=== PATIENT | male | born 1975 | race African-American/Black ===

== ENCOUNTER 2017-06-02 23:26 | Emergency (ER) | payer BC ==
--- NOTE | 2017-06-03 01:57 | ED ---
Throat Pain/Nasal Congestion - HPI Summary HPI Summary: 42-year-old male presents ED with complaint of right eye itchiness and discharge that began yesterday. Patient states about a week and a half ago he had same symptoms in the left eye machine with antibiotic drops. Does not wear contacts or glasses. Denies any changes to vision. No other complaints. No past medical history. Does not have any drops left over from previous infection. - History of Current Complaint Chief Complaint: EDEyeProblem Time Seen by Provider: 06/03/17 01:36 Hx Obtained From: Patient Onset/Duration: Sudden Onset, Lasting Days - 1, Still Present Severity: Mild Cough: None - Allergies/Home Medications Allergies/Adverse Reactions: Allergies Allergy/AdvReac Type Severity Reaction Status Date / Time No Known Allergies Allergy Verified 08/14/15 11:38 PMH/Surg Hx/FS Hx/Imm Hx Endocrine/Hematology History: Denies: Hx Diabetes, Hx Thyroid Disease Cardiovascular History: Denies: Hx Hypertension Respiratory History: Reports: Hx Asthma - no medications Denies: Hx Chronic Obstructive Pulmonary Disease (COPD) GI History: Denies: Hx Ulcer Musculoskeletal History: Reports: Hx Back Problems - Immunization History Immunizations Up to Date: Yes Infectious Disease History: No Infectious Disease History: Denies: Hx Clostridium Difficile, Hx Hepatitis, Hx Human Immunodeficiency Virus (HIV), Hx of Known/Suspected MRSA, Hx Shingles, Hx Tuberculosis, Hx Known/ Suspected VRE, Hx Known/Suspected VRSA, History Other Infectious Disease, Traveled Outside the [place] in Last 30 Days - Family History Known Family History: Positive: Cardiac Disease - [place], Hypertension, Other - Sickle cell - Social History Alcohol Use: Rare Substance Use Type: Reports: None Smoking Status (MU): Never Smoked Tobacco Have You Smoked in the Last Year: No Review of Systems Constitutional: Negative Positive: Drainage - right eye, Other - itchy Cardiovascular: Negative Respiratory: Negative All Other Systems Reviewed And Are Negative: Yes Physical Exam Triage Information Reviewed: Yes Vital Signs On Initial Exam: Initial Vitals Temp Pulse Resp BP Pulse Ox 97.9 F 82 20 149/76 96 06/02/17 23:28 06/02/17 23:28 06/02/17 23:28 06/02/17 23:28 06/02/17 23:28 Vital Signs Reviewed: Yes Appearance: Positive: Well-Appearing, No Pain Distress, Well-Nourished Skin: Positive: Warm, Skin Color Reflects Adequate Perfusion, Dry. Negative: Cold Head/Face: Positive: Normal Head/Face Inspection Eyes: Positive: Normal, EOMI, TRESA, Conjunctiva Inflammed, Other: - Normal visual acuity. Normal funduscopic exam. Discharge noted at right conjunctiva yellow in color purulent ENT: Positive: Normal ENT inspection, Hearing grossly normal, Pharynx normal, TMs normal, Uvula midline. Negative: Tonsillar swelling, Tonsillar exudate Neck: Positive: Supple, Nontender Respiratory/Lung Sounds: Positive: Clear to Auscultation, Breath Sounds Present. Negative: Rales, Rhonchi, Wheezes Cardiovascular: Positive: Normal, RRR, Pulses are Symmetrical in both Upper and Lower Extremities. Negative: Murmur, Rub Musculoskeletal: Positive: Normal, Strength/ROM Intact Neurological: Positive: Normal, Sensory/Motor Intact, Alert, Oriented to Person Place, Time Diagnostics - Vital Signs Vital Signs Temp Pulse Resp BP Pulse Ox 06/02/17 23:28 97.9 F 82 20 149/76 96 - Laboratory Lab Statement: Any lab studies that have been ordered have been reviewed, and results considered in the medical decision making process. EENT Course/Dx - Course Course Of Treatment: Appears to be suffering from conjunctivitis of right eye. Given Polytrim eyedrops in ED. Instructed how to use them. Instructed that it is very contagious and to wash blankets pillows towels with hot water and avoid touching eyes. Wash hands frequently. Aware worsening signs and symptoms watch out for. Follow-up with PCP - Differential Diagnoses Differential Diagnoses: Conjunctivitis - Diagnoses Provider Diagnoses: Conjunctivitis, right eye Discharge - Sign-Out/Discharge Documenting (check all that apply): Discharge - Discharge Plan Condition: Good Disposition: HOME Patient Education Materials: Conjunctivitis (ED) Referrals: Adrien Manzanares MD [Primary Care Provider] - Additional Instructions: Used eyedrops as directed. 1 drop every 3 hours into the right eye for 7-10 days. If the other eye becomes itchy or has discharge use drops in the other eye. Wash hands frequently. Do not touch eyes. Recommend washing all towels blankets pillowcases with hot water on day 2 and day 7. Applied warm compresses to eye multiple times daily. Any new or worsening symptoms please seek medical attention promptly. Follow-up with PCP to ensure improvement. - Billing Disposition and Condition Condition: GOOD Disposition: HOME
[2017-06-03] MEDS ORDERED: Polymyx/Trimethoprim OPTH* 10 ML BTL RIGHT EYE SCH (02:00)
[2017-06-03 02:08] VITALS: BP 154/72
== END 2017-06-03 02:07 | disposition home or self-care (01) ==
LOC: ED 23:26
DX: H10.9 Unspecified conjunctivitis (principal)
CPT/HCPCS: 99282

== ENCOUNTER 2018-08-18 08:56 | Inpatient (IN) | payer BC ==
[2018-08-18] MEDS ORDERED: NS 0.9% 1000 ML** 1,000 ML IV ONE (09:14)
[2018-08-18 09:35] LABS: Hematocrit 39 % (42-52); Hemoglobin 12.4 g/dL (14.0-18.0); Mean Corpuscular HGB Conc 32 g/dL (31-36); Mean Corpuscular Hemoglobin 25 pg (27-31); Mean Corpuscular Volume 79 fL (80-94); Mean Platelet Volume 8.6 fL (7.4-10.4); Platelet Count 218 10^3/uL (150-450); Red Cell Distribution Width 16 % (10.5-15); White Blood Count 15.1 10^3/uL (3.5-10.8)
--- NOTE | 2018-08-18 09:48 | ED ---
Shortness of Breath - HPI Summary HPI Summary: Patient is a 43-year-old male with history of morbid obesity and childhood asthma presenting to the ED with acute onset SOB and chest discomfort which started 2 days ago. He states he was recently in [place] on a cruise. He states he felt well and the cruise but arriving back into [place] immediately following the cruise he began to have a cough. The cough has been worsening over the past 2 days and he arrived home yesterday after he a long flight and drive. He is endorsing worsening shortness of breath accompanied by the cough. Cough is without production. He is having chest discomfort only with cough. His endorsing shortness of breath at rest. He takes no medications. Denies any cardiac history. He states he used to have an albuterol inhaler as well as nebulizer treatments at home, however currently does not have these at this time. Denies smoking history. Denies any history of PE or DVT. Currently has a left-sided leg swelling from an infection to which she has an appointment next week with his PCP. On arrival into the ED he was noted to be 82% on room air. He was increased to 96% on 4 L. - History of Current Complaint Chief Complaint: EDChestPainROMI Time Seen by Provider: 08/18/18 09:11 Hx Obtained From: Patient Onset/Duration: Sudden Onset Timing: Constant Current Severity: Severe Dyspnea At: Rest Associated Signs & Symptoms: Cough (Nonproductive), Wheezing, Chest Pain w/Cough Related History: Obesity - Risk Factors Pulmonary Embolism: Recent Travel, Bedrest Cardiac: Negative Pseudomonas: Negative Tuberculosis: Negative - Allergy/Home Medications Allergies/Adverse Reactions: Allergies Allergy/AdvReac Type Severity Reaction Status Date / Time No Known Allergies Allergy Verified 08/14/15 11:38 Home Medications: Home Medications NK [No Home Medications Reported] 08/18/18 [History Confirmed 08/18/18] PMH/Surg Hx/FS Hx/Imm Hx Previously Healthy: Yes Endocrine/Hematology History: Denies: Hx Diabetes, Hx Thyroid Disease Cardiovascular History: Denies: Hx Hypertension Respiratory History: Reports: Hx Asthma - no medications Denies: Hx Chronic Obstructive Pulmonary Disease (COPD) GI History: Denies: Hx Ulcer Musculoskeletal History: Reports: Hx Back Problems - Immunization History Hx Pertussis Vaccination: No Immunizations Up to Date: Yes Infectious Disease History: No Infectious Disease History: Reports: Traveled Outside the [place] in Last 30 Days Denies: Hx Clostridium Difficile, Hx Hepatitis, Hx Human Immunodeficiency Virus (HIV), Hx of Known/Suspected MRSA, Hx Shingles, Hx Tuberculosis, Hx Known/ Suspected VRE, Hx Known/Suspected VRSA, History Other Infectious Disease - Family History Known Family History: Positive: Cardiac Disease - [place], Hypertension, Other - Sickle cell - Social History Occupation: Unemployed Lives: With Family Alcohol Use: Rare Hx Substance Use: No Substance Use Type: Reports: None Smoking Status (MU): Never Smoked Tobacco Have You Smoked in the Last Year: No Review of Systems Constitutional: Negative Negative: Fever, Chills, Fatigue, Skin Diaphoresis Negative: Palpitations, Chest Pain Negative: Shortness Of Breath, Cough Genitourinary: Negative Positive: no symptoms reported, see HPI Negative: Arthralgia, Myalgia Positive: Other - left leg swelling Neurological: Negative All Other Systems Reviewed And Are Negative: Yes Physical Exam Triage Information Reviewed: Yes Vital Signs On Initial Exam: Initial Vitals Temp Pulse Resp BP Pulse Ox 97.8 F 94 18 164/107 82 08/18/18 09:07 08/18/18 09:07 08/18/18 09:07 08/18/18 09:07 08/18/18 09:07 Vital Signs Reviewed: Yes Appearance: Positive: Well-Nourished Skin: Positive: Warm, Skin Color Reflects Adequate Perfusion Head/Face: Positive: Normal Head/Face Inspection Eyes: Positive: EOMI, Conjunctiva Clear Neck: Positive: Nontender, No Lymphadenopathy Respiratory/Lung Sounds: Positive: Wheezes Cardiovascular: Positive: Pulses are Symmetrical in both Upper and Lower Extremities Musculoskeletal: Positive: Strength/ROM Intact Neurological: Positive: Speech Normal Psychiatric: Positive: Affect/Mood Appropriate AVPU Assessment: Alert Diagnostics - Vital Signs Vital Signs Temp Pulse Resp BP Pulse Ox 08/18/18 09:16 20 133/66 08/18/18 09:15 20 08/18/18 09:07 97.8 F 94 18 164/107 82 - Laboratory Lab Results: Lab Results 08/18/18 Range/Units 09:26 WBC 15.1 H (3.5-10.8) 10^3/uL RBC 4.90 (4.18-5.48) 10^6 /uL Hgb 12.4 L (14.0-18.0) g/dL Hct 39 L (42-52) % MCV 79 L (80-94) fL MCH 25 L (27-31) pg MCHC 32 (31-36) g/dL RDW 16 H (10.5-15) % Plt Count 218 (150-450) 10^3/uL MPV 8.6 (7.4-10.4) fL Neut % (Auto) Pending Lymph % (Auto) Pending Wagoner % (Auto) Pending Eos % (Auto) Pending Baso % (Auto) Pending Absolute Neuts (auto) Pending Absolute Lymphs (auto) Pending Absolute Monos (auto) Pending Absolute Eos (auto) Pending Absolute Basos (auto) Pending Absolute Nucleated RBC Pending Nucleated RBC % Pending Result Diagrams: 08/18/18 09:26 08/18/18 09:26 Lab Statement: Any lab studies that have been ordered have been reviewed, and results considered in the medical decision making process. Course/Dx - Course Course Of Treatment: On arrival into the ED, patient is noted to be 82% on room air. He is placed on 4 L and immediately increases to 96%. He is endorsing chest discomfort with cough and shortness of breath. He denies taking any medications. CTA read as negative/nondiagnostic for any PE. He states symptoms began prior to boarding a flight back to the [place], however worsened after he arrived. Labs obtained which show a 15,000 white count and an elevated CRP. Attempted to discontinue 2 L nasal cannula and patient dropped to 88%. This was at rest. BNP is WNL. Discussed case with Dr. Marquez, hospitalist who agrees to admit for further evaluation of his shortness of breath. Denies leg swelling or hx of DVT. On re-examination, discussed if patient had any recent illness. At this time, he mentions a left leg "infection " in which he has an appt to see his PCP this week. There is a left sided loewr leg infection which appears to be ulcerative. No swelling per patient. On re-examination, patient is noted to be 88% on 2L - he is increased to 3L and is satting at 91%. - Diagnoses Differential Diagnosis/HQI/PQRI: Positive: Bronchitis, CHF, Pneumonia, Pulmonary Embolism, Pulmonary Edema, Other - ashthma, COPD, viral illness Provider Diagnoses: Leg abrasion, Shortness of breath, Cough, Increased oxygen demand Discharge - Sign-Out/Discharge Documenting (check all that apply): Patient Departure Patient Received Moderate/Deep Sedation with Procedure: No - Discharge Plan Condition: Fair Disposition: ADMITTED TO [facility] Referrals: Adrien Manzanares MD [Primary Care Provider] - - Billing Disposition and Condition Condition: FAIR Disposition: Admitted to [facility] - Attestation Statements Provider Attestation: I was available for consult. This patient was seen by the [facility]. The patient was not presented to, seen by, or examined by me. -Tg
[2018-08-18 09:52] LABS: INR 1.17 (0.82-1.09)
[2018-08-18 09:53] LABS: Albumin 3.8 g/dL (3.2-5.2); Albumin/Globulin Ratio 0.8 (1-3); BUN/Creatinine Ratio 9.7 (8-20); C Reactive Protein 116.71 mg/L (<8.01); Calcium 9.2 mg/dL (8.6-10.3); EGFR African American 107.8 (>60); EGFR Non-African American 89.1 (>60); Globulin 4.6 g/dL (2-4); Potassium 4.4 mmol/L (3.5-5.0); Total Bilirubin 0.6 mg/dL (0.2-1.0); Total Protein 8.4 g/dL (6.4-8.9)
[2018-08-18 09:54] LABS: Troponin I 0.02 ng/mL (<0.04)
[2018-08-18 10:13] LABS: ABS Basophils 0.1 10^3/ul (0-0.2); ABS Eosinophils 0.2 10^3/ul (0-0.6); ABS Lymphocytes 2.8 10^3/ul (1.0-4.8); ABS Monocytes 1.7 10^3/ul (0-0.8); ABS Neutrophils 10.4 10^3/ul (1.5-7.7); Eosinophil % 1.4 %; Lymphocyte % 18.3 %; Nucleated Red Blood Cells % 0.1
[2018-08-18] MEDS ORDERED: Iohexol 350* (CONTRAST) 500 ML MDV IV ONE (11:13)
[2018-08-18] MEDS ORDERED: Albuterol/Ipratropium NEB.SOL* Albuterol 2.5 MG/Ipratropium 0.5 MG 3 ML INH PRN (15:13)
[2018-08-18] MEDS ORDERED: NS 0.9% 1000 ML** 1,000 ML IV SCH (15:15)
[2018-08-18] MEDS ORDERED: methylPREDNISolone 125 MG* 2 ML VIAL IV ONE ×2 (15:20→18:03)
[2018-08-18] MEDS ORDERED: Ketorolac INJ* 30 MG/ML 1 ML VIAL IV PUSH ONE (15:22)
--- NOTE | 2018-08-18 16:47 | HP ---
CC: Dr. Adrien Manzanares * [facility] MEDICINE HISTORY AND PHYSICAL: DATE OF ADMISSION: 08/18/18 PROVIDER: Elenita Perera NP PRIMARY CARE PROVIDER: Dr. Manzanares. ATTENDING PHYSICIAN WHILE IN THE HOSPITAL: Dr. Dustin Marquez * (dictated by Elenita Perera NP). CHIEF COMPLAINT: 1. Shortness of breath, cough x3 days. 2. Left lower leg wound x3 weeks. HISTORY OF PRESENT ILLNESS: Mr. Molina is a 43-year-old male with a past medical history significant for morbid obesity and asthma, who presents to the emergency room with complaints of progressively worsening shortness of breath and cough x3 days. The patient reports that he recently flew to [place] on and returned on 08/16/18. He reports that on 08/16/18, he developed shortness of breath and cough that has become progressively worse. He does note yellow productive cough. He reports that he also has upper chest pain. He reports it is worse with cough and deep breath. It is reproducible with palpation to the chest x2 days. He also complains of a sore throat x2 days. He reports that he has had an ulceration on the left lower leg lateral aspect for approximately 3 weeks. He denies any drainage. He does report some throbbing pain to the left lower leg. Due to his cough, congestion and chest pain, we were asked to see and evaluate him for admission. While in the emergency room, the patient had routine lab work drawn. He was found to have leukocytosis with a white count of 15,000. He was also found to be hypoxic on oxygen in the emergency room with desaturations to 88%. Due to the hypoxia, cough, congestion, chest pain, we were asked to evaluate him for admission. PAST MEDICAL HISTORY: Obesity, asthma. PAST SURGICAL HISTORY: No history of surgeries. HOME MEDICATIONS: None. ALLERGIES: No known drug allergies. FAMILY HISTORY: Mother and father both with hypertension. No reported history of diabetes. Mother with history of breast cancer. SOCIAL HISTORY: The patient denies any tobacco. Does report occasional alcohol use. Denies any illicit drug use. He is . He lives with his father. Surrogate decision maker in the event he is unable to make his own decisions is his mother. He is a full code. REVIEW OF SYSTEMS: He denies any fever or unintended weight loss. He does report chest pain, worse with cough and deep breath. He does report chronic lower extremity edema bilaterally, unchanged. He does report a productive cough with yellow sputum. Denies any hemoptysis. He does report shortness of breath, unable to take a deep breath due to pain. Shortness of breath worse with exertion and movement. No nausea, vomiting, diarrhea or abdominal pain, hematuria or dysuria. Denies any focal weakness or sensory loss. Denies any dysphagia, arthralgias, myalgias. He does have an ulceration noted to his left lower leg. There is no surrounding erythema or warmth. Denies any psychosis or anxiety. PHYSICAL EXAMINATION GENERAL: At this time, Mr. Molina is a 43-year-old male. He is morbidly obese , sitting in a chair in the emergency room. He is drowsy. He does not appear to be in any acute distress. VITAL SIGNS: Blood pressure 154/80, heart rate 86, respirations are 22, O2 saturation 90% to 96% on oxygen via nasal cannula. HEENT: Head is atraumatic, normocephalic. Eyes: EOMs are intact. Sclerae anicteric and not pale. Oral mucosa appeared to be moist. NECK: Supple. LUNGS: Diminished throughout with inspiratory and expiratory wheezing and a few scattered rhonchi. CARDIAC: S1, S2. Regular rate and rhythm. No murmurs, rubs, or gallops. The patient does have reproducible chest pain with palpation to midsternal and lateral chest. ABDOMEN: Obese, soft, nontender. Bowel sounds are present x4. MUSCULOSKELETAL: The patient is able to move all 4 extremities. There is no clubbing or cyanosis. He does have an open ulceration noted to the left lateral leg and darker discoloration to bilateral lower legs. NEUROLOGIC: He is awake, alert, oriented x3. Speech is clear. Thought process is intact. There are no gross focal deficits. SKIN: There is an ulceration noted to the lateral leg. Surrounding the ulceration, there is no erythema. DIAGNOSTIC STUDIES/LAB DATA: WBCs are 15.1, RBCs 4.90, hemoglobin 12.9, hematocrit 39, platelet count 218. INR is 1.17. Sodium 133, potassium 4.4, chloride 97, carbon dioxide is 33, anion gap is 3, BUN was 9, creatinine 0.93, lactic acid was 0.6, calcium 9.2. ASTs were 29, ALTs were 23, alkaline phosphatase was 46. Troponin was 0.02. C-reactive protein 116.71. BNP was 37. Urine is currently pending. He had a CTA of the chest: Limited study which does not meet the diagnostic criteria for detection of pulmonary embolism, hepatomegaly with fatty infiltration of the liver. He had an electrocardiogram, which showed sinus rhythm at a rate of 82. He does have T-wave inversion in V1. ASSESSMENT AND PLAN: Mr. Molina is a 43-year-old male with a past medical history significant for asthma and morbid obesity, who presented with complaints of shortness of breath and cough, recent travel. He will be admitted inpatient for: 1. Shortness of breath. I suspect this could be related to asthma exacerbation with acute bronchitis or underlying pneumonia. Within the differential is pulmonary embolism as the patient has had recent travel, swelling to his lower extremities, but denies any calf tenderness. CTA of the chest was nondiagnostic. I believe that more likely this is related to asthma exacerbation complicated by bronchitis or underlying pneumonia. The patient does have a 15,000 white count and a yellow productive cough with a history of asthma. I will place him on azithromycin and ceftriaxone. I will give him Solu -Medrol 125 mg IV. I will continue him on prednisone 40 mg p.o. daily starting tomorrow. He does meet sepsis criteria with elevated respirations, leukocytosis , and suspected source bronchitis versus pneumonia. I will send a urine for Legionella and Strep pneumoniae and a sputum culture. We will also continue with nebulizers. I will also order an ABG. 2. Left lower leg ulcer. The patient does have an ulceration noted to his left lower leg. Wound culture is currently pending. I will treat him with ceftriaxone at this time and adjust the antibiotics as needed per wound culture. 3. FEN: He can have a regular diet. 4. Code status: He is a full code. 5. DVT prophylaxis: I will place him on Lovenox subcu. 6. Disposition: The patient will be placed inpatient on medical. Condition at admission is guarded. TIME SPENT: Time spent on this admission was approximately 60 minutes, greater than half that time was spent at the bedside reviewing events leading thus far to his hospitalization, performing physical exam, and reviewing my plan of care. I have discussed this with my attending, Dr. Dustin Marquez; he is in agreement with my plan. ELENITA PERERA, LIFE CLAIMS EXAMINER [id number]/[facility] #: [id number] MAIMONIDES MEDICAL CENTERKiran
[2018-08-18] MEDS: cefTRIAXone(*) 1 GM in NS 0.9% 50 ML* 50 ML IVPB SCH ×5 (17:51→18:14)
[2018-08-18] MEDS: Enoxaparin(*) 40 MG/0.4 ML SYR SUBCUT SCH (17:51)
[2018-08-18] MEDS: Azithromycin 500 mg/250 ml NS 500 MG/250 ML BAG IVPB SCH (17:53)
[2018-08-18] MEDS ORDERED: Ketorolac INJ* 30 MG/ML 1 ML VIAL IV PUSH PRN ×2 (18:03→23:00)
[2018-08-18] MEDS ORDERED: cefTRIAXone(*) 1 GM in NS 0.9% 50 ML* 50 ML IVPB SCH (18:30)
[2018-08-18 19:30] LABS: Urine Appearance Clear; Urine Bacteria Absent (Absent); Urine Bilirubin Negative (Negative); Urine Blood Negative (Negative); Urine Color Yellow; Urine Glucose Negative (Negative); Urine Ketones Negative (Negative); Urine Nitrite Negative (Negative); Urine Protein 1+(30 mg/dL) (Negative); Urine Red Blood Cell Trace(0-2/hpf) (Absent); Urine Specific Gravity 1.045 (1.010-1.030); Urine Squamous Epithelial Cell Present (Absent); Urine Urobilinogen Negative (Negative); Urine White Blood Cell Absent (Absent)
--- NOTE | 2018-08-18 21:01 | PN ---
Progress Note - Progress Note Date of Service: 08/18/18 Note: ABG resulted - respiratory acidosis. Patient not in respiratory distress but appears to have shallow respirations and likely obesity hypoventilation syndrome exacerbated by his asthma exacerbation. States he was intolerant of nasal and face mask CPAP at home. Discussed they he needs it tonight. Transfer to ICU for BiPAP Will repeat ABG Concern for PE still on differential, will check ddimer - if elevated will start him on heparin drip and order V/Q scan for AM CTA nondiagnostic M
[2018-08-19] MEDS: Albuterol/Ipratropium NEB.SOL* Albuterol 2.5 MG/Ipratropium 0.5 MG 3 ML INH SCH ×7 (01:14→23:04)
[2018-08-19] MEDS ORDERED: Succinylcholine* 20 MG/ML 10 ML VIAL ONE (03:26)
[2018-08-19] MEDS ORDERED: Propofol* 0 ML ONE (03:26)
[2018-08-19] MEDS ORDERED: Albuterol 2.5 MG/3 ML NEB.SOL* (0.083%) INH ONE (03:34)
[2018-08-19] MEDS ORDERED: Magnesium Sulfate 2 GM IV* 2 GM/50 ML BAG IVPB ONE (03:35)
[2018-08-19] MEDS ORDERED: Furosemide IV* 10 MG/ML 2 ML VIAL (20 MG) IV ONE ×2 (03:52→03:56)
[2018-08-19] MEDS ORDERED: Nitro 2% OINT* (Nitroglycerin) 1 INCH/PAK PAK TOPICAL ONE (03:56)
[2018-08-19] MEDS ORDERED: Lactated Ringers 1000 ML Bag* 1,000 ML IV SCH (04:00)
[2018-08-19] MEDS: Albuterol 2.5 MG/3 ML NEB.SOL* (0.083%) INH PRN ×3 (04:10→04:26)
[2018-08-19 05:37] LABS: ABS Lymphocytes 0.9 10^3/ul (1.0-4.8); ABS Monocytes 0.6 10^3/ul (0-0.8); ABS Neutrophils 12.1 10^3/ul (1.5-7.7); Hematocrit 40 % (42-52); Hemoglobin 12.6 g/dL (14.0-18.0); Lymphocyte % 6.5 %; Mean Corpuscular HGB Conc 32 g/dL (31-36); Mean Corpuscular Hemoglobin 25 pg (27-31); Mean Corpuscular Volume 80 fL (80-94); Mean Platelet Volume 8.7 fL (7.4-10.4); Platelet Count 235 10^3/uL (150-450); Red Blood Count 4.96 10^6 /uL (4.18-5.48); Red Cell Distribution Width 16 % (10.5-15); White Blood Count 13.6 10^3/uL (3.5-10.8)
[2018-08-19 05:39] LABS: Urine Appearance Clear; Urine Bilirubin Negative (Negative); Urine Blood Negative (Negative); Urine Color Straw; Urine Glucose Negative (Negative); Urine Ketones Negative (Negative); Urine Nitrite Negative (Negative); Urine Protein Negative (Negative); Urine Specific Gravity 1.006 (1.010-1.030); Urine Urobilinogen Negative (Negative)
[2018-08-19 05:55] LABS: BUN/Creatinine Ratio 13.2 (8-20); Calcium 9.4 mg/dL (8.6-10.3); EGFR African American 110.6 (>60); EGFR Non-African American 91.4 (>60); HDL Cholesterol 69.1 mg/dL
[2018-08-19 05:57] LABS: Potassium 5.2 mmol/L (3.5-5.0)
[2018-08-19 06:29] LABS: TSH (Thyroid Stimulating Horm) 0.4 mcIU/mL (0.34-5.60)
[2018-08-19] MEDS ORDERED: predniSONE TAB* 20 MG PO SCH (09:00)
[2018-08-19] MEDS ORDERED: Perflutren Lipid Microsphere* 3 ML VIAL ONE (09:58)
[2018-08-19] MEDS ORDERED: Nitro Patch/OINT Remove TOPICAL ONE (10:00)
[2018-08-19] MEDS ORDERED: Vancomycin per Pharmacy* NOTE FOLLOW UP PRN (10:29)
[2018-08-19] MEDS ORDERED: Vancomycin(*) 2,000 MG in NS 0.9% 500 ML* 500 ML IVPB ONE (11:00)
--- NOTE | 2018-08-19 11:59 | PN ---
Date of Service: 08/19/18 Critical Care Services: patient seen and evaluated at the bedside. Girlfriend listening over the phone patient in NAD. AO times 3. Comfortable. Conversational MRSA growing from left LE wound diuresed 3 plus liters with lasix CRP elevated, WBC elevated with left shift d-dimer negative. Negative LE US for DVT Vital Signs: Temp Pulse Resp BP SpO2 FiO2 97.3 F 91 18 123/60 95 50 08/19/18 11:01 08/19/18 11:15 08/19/18 11:15 08/19/18 11:01 08/19/18 11:15 08/19 07:52 Physical Exam: Gen: Obese. NAD. HEENT: EOMI Lungs: Decreased BS's Cardiac: RRR Abdomen: Obese, Soft, NTP, no rebound or guarding Extremities: No CONOR Neuro: moving all extremities Fluid Balance (Past 24 Hours): I= O= Net Intake & Output 08/17/18 08/18/18 08/19/18 08/20/18 06:59 06:59 06:59 06:59 Intake Total 1290 60 Output Total 3550 575 Balance -2260 -515 Weight 525 lb 9.312 oz Intake: IV Fluids 1000 Medicated IV 50 mag 50 Oral 240 60 Output: Urine 1300 Damon 2250 575 A Labs: Laboratory Results - last 24 hr 08/18/18 08/18/18 08/18/18 17:38 18:55 19:45 WBC RBC Hgb Hct MCV MCH MCHC RDW Plt Count MPV Neut % (Auto) Lymph % (Auto) [place] % (Auto) Eos % (Auto) Baso % (Auto) Absolute Neuts (auto) Absolute Lymphs (auto) Absolute Monos (auto) Absolute Eos (auto) Absolute Basos (auto) Absolute Nucleated RBC Nucleated RBC % D-Dimer, Quantitative Patient Temperature ABG pH 7.30 L ABG pH (Temp Correct) ABG pCO2 77 H* ABG pCO2 (Temp Corrct ABG pO2 85 ABG pO2 (Temp Correct ABG HCO3 31.4 H ABG O2 Saturation 97.9 ABG Base Excess 8.4 H Respiration Rate Ventilator Type Vent Mode FiO2 Inspiratory Time PEEP Pressure Support Pressure Control EPAP IPAP BiPAP Sodium Potassium Chloride Carbon Dioxide Anion Gap BUN Creatinine Est GFR ( Amer) Est GFR (Non-Af Amer) BUN/Creatinine Ratio Glucose Hemoglobin A1c Calcium Troponin I 0.03 Triglycerides Cholesterol LDL Cholesterol HDL Cholesterol TSH Urine Color Yellow Urine Appearance Clear Urine pH 6.0 Ur Specific [place] 1.045 H Urine Protein 1+(30 mg/dl) A Urine Ketones Negative Urine Blood Negative Urine Nitrate Negative Urine Bilirubin Negative Urine Urobilinogen Negative Ur Leukocyte Esterase Negative Urine WBC (Auto) Absent Urine RBC (Auto) Trace(0-2/hpf) Ur Squamous Epith Cells Present A Urine Bacteria Absent Urine Glucose Negative Urine Ascorbic Acid * A 08/18/18 08/18/18 08/19/18 20:30 21:50 00:00 WBC RBC Hgb Hct MCV MCH MCHC RDW Plt Count MPV Neut % (Auto) Lymph % (Auto) [place] % (Auto) Eos % (Auto) Baso % (Auto) Absolute Neuts (auto) Absolute Lymphs (auto) Absolute Monos (auto) Absolute Eos (auto) Absolute Basos (auto) Absolute Nucleated RBC Nucleated RBC % D-Dimer, Quantitative < 200 Patient Temperature ABG pH 7.27 L ABG pH (Temp Correct) ABG pCO2 87 H* ABG pCO2 (Temp Corrct ABG pO2 52 L* ABG pO2 (Temp Correct ABG HCO3 31.8 H ABG O2 Saturation 82.0 L ABG Base Excess 9.4 H Respiration Rate Ventilator Type Vent Mode FiO2 Inspiratory Time PEEP Pressure Support Pressure Control EPAP IPAP BiPAP Sodium Potassium Chloride Carbon Dioxide Anion Gap BUN Creatinine Est GFR ( Amer) Est GFR (Non-Af Amer) BUN/Creatinine Ratio Glucose Hemoglobin A1c Calcium Troponin I 0.01 Triglycerides Cholesterol LDL Cholesterol HDL Cholesterol TSH Urine Color Urine Appearance Urine pH Ur Specific [place] Urine Protein Urine Ketones Urine Blood Urine Nitrate Urine Bilirubin Urine Urobilinogen Ur Leukocyte Esterase Urine WBC (Auto) Urine RBC (Auto) Ur Squamous Epith Cells Urine Bacteria Urine Glucose Urine Ascorbic Acid 08/19/18 08/19/18 08/19/18 01:20 03:00 04:50 WBC RBC Hgb Hct MCV MCH MCHC RDW Plt Count MPV Neut % (Auto) Lymph % (Auto) [place] % (Auto) Eos % (Auto) Baso % (Auto) Absolute Neuts (auto) Absolute Lymphs (auto) Absolute Monos (auto) Absolute Eos (auto) Absolute Basos (auto) Absolute Nucleated RBC Nucleated RBC % D-Dimer, Quantitative Patient Temperature Not Reportable ABG pH 7.26 L 7.26 L ABG pH (Temp Correct) Not Reportable ABG pCO2 88 H* 90 H* ABG pCO2 (Temp Corrct Not Reportable ABG pO2 85 69 L ABG pO2 (Temp Correct Not Reportable ABG HCO3 31.7 H 32.3 H ABG O2 Saturation 98.1 H 94.8 ABG Base Excess 8.8 H 9.6 H Respiration Rate Not Reportable Ventilator Type Not Reportable Vent Mode Not Reportable FiO2 50 Inspiratory Time Not Reportable PEEP Not Reportable Pressure Support Not Reportable Pressure Control Not Reportable EPAP Not Reportable IPAP 10 BiPAP 20 Sodium Potassium Chloride Carbon Dioxide Anion Gap BUN Creatinine Est GFR ( Amer) Est GFR (Non-Af Amer) BUN/Creatinine Ratio Glucose Hemoglobin A1c Calcium Troponin I Triglycerides Cholesterol LDL Cholesterol HDL Cholesterol TSH Urine Color Straw Urine Appearance Clear Urine pH 5.0 Ur Specific [place] 1.006 L Urine Protein Negative Urine Ketones Negative Urine Blood Negative Urine Nitrate Negative Urine Bilirubin Negative Urine Urobilinogen Negative Ur Leukocyte Esterase Negative Urine WBC (Auto) Urine RBC (Auto) Ur Squamous Epith Cells Urine Bacteria Urine Glucose Negative Urine Ascorbic Acid 08/19/18 08/19/18 08/19/18 05:30 05:30 05:30 WBC 13.6 H RBC 4.96 Hgb 12.6 L Hct 40 L MCV 80 MCH 25 L MCHC 32 RDW 16 H Plt Count 235 MPV 8.7 Neut % (Auto) 89.1 Lymph % (Auto) 6.5 [place] % (Auto) 4.1 Eos % (Auto) 0.0 Baso % (Auto) 0.3 Absolute Neuts (auto) 12.1 H Absolute Lymphs (auto) 0.9 L Absolute Monos (auto) 0.6 Absolute Eos (auto) 0.0 Absolute Basos (auto) 0.0 Absolute Nucleated RBC 0.0 Nucleated RBC % 0.0 D-Dimer, Quantitative Patient Temperature ABG pH ABG pH (Temp Correct) ABG pCO2 ABG pCO2 (Temp Corrct ABG pO2 ABG pO2 (Temp Correct ABG HCO3 ABG O2 Saturation ABG Base Excess Respiration Rate Ventilator Type Vent Mode FiO2 Inspiratory Time PEEP Pressure Support Pressure Control EPAP IPAP BiPAP Sodium 135 Potassium 5.2 H Chloride 96 L Carbon Dioxide 37 H Anion Gap 2 BUN 12 Creatinine 0.91 Est GFR ( Amer) 110.6 Est GFR (Non-Af Amer) 91.4 BUN/Creatinine Ratio 13.2 Glucose 172 H Hemoglobin A1c 5.9 H Calcium 9.4 Troponin I Triglycerides 98 Cholesterol 173 LDL Cholesterol 84 HDL Cholesterol 69.1 TSH 0.40 Urine Color Urine Appearance Urine pH Ur Specific [place] Urine Protein Urine Ketones Urine Blood Urine Nitrate Urine Bilirubin Urine Urobilinogen Ur Leukocyte Esterase Urine WBC (Auto) Urine RBC (Auto) Ur Squamous Epith Cells Urine Bacteria Urine Glucose Urine Ascorbic Acid Impression: #PNA #Volume overload #Pickwickian syndrome #MRSA LLE #chronic hypercapnea Plan: Continue empiric ABX CPAP/BiPap overnight. note, based on labs patient with chronic hypercapnea needs new cpap machine or his own machine adjusted as he finds it uncomfortable to use continue to diurese transfer to floor tomorrow if continues to improve monitor blood cx's as wound + for MRSA f/u TTE Critical Care Time: 45
[2018-08-19] MEDS: Furosemide IV* 10 MG/ML 2 ML VIAL (20 MG) IV SLOW PU SCH (13:04)
--- NOTE | 2018-08-19 14:33 | ECHO ---
*[facility]* [place] [address] Fax #: [phone] Transthoracic Echocardiogram Patient: Jesse, Height: 75 in / Cecilio 190.5 cm : 1975 Weight: 523.9 lb / Study Date: 08/19/2018 238.1 kg Age: 43 BP: 126 / 67 Gender: M BMI/BSA: 65.6 kg/m^2 HR: 81 bpm / 3.31 m^2 *Semiconductor Wafer Inspector: * Lili Faria [facility] *Referring Physician: * Elenita Perera *Reading Physician: * Jacinto Chavez MD Indications: SOB. History: Asthma. Risk factors: Morbidly obese. Conclusions Summary: 1. Left ventricle: The cavity size is at the upper limits of normal. Wall thickness is moderately increased. Systolic function is normal. The estimated ejection fraction is 55-60%. Wall motion is normal; there are no regional wall motion abnormalities. 2. Right ventricle: Not well visualized. The cavity size is normal. Systolic function is mildly reduced. 3. Left atrium: The atrium is normal in size. 4. No significant valvular abnormalities. Unable to estimate PASP. Recommendations: No prior studies available for comparison at time of interpretation Study data: Transthoracic echocardiogram. Procedure: Transthoracic echocardiography was performed. Image quality was adequate. Intravenous Definity , 2 mlswas administered. Image enhancement administered by JAYASHREE Walsh. Complete 2D, spectral Doppler, and color flow Doppler. Location: ICU Patient status: Inpatient. Patient room number: 3. Rhythm: Normal sinus rhythm. Findings Left ventricle: The cavity size is at the upper limits of normal. Wall thickness is moderately increased. Systolic function is normal. The estimated ejection fraction is 55-60%. Wall motion is normal; there are no regional wall motion abnormalities. Discrepant data regarding diastolic filling. Right ventricle: Not well visualized. The cavity size is normal. Systolic function is mildly reduced. Left atrium: The atrium is normal in size. Right atrium: Not well visualized. Mitral valve: The leaflets are normal thickness. There is no evidence of stenosis. There is no significant regurgitation. Aortic valve: The valve is trileaflet. The leaflets are normal thickness. There is no evidence of stenosis. There is no significant regurgitation. Tricuspid valve: The leaflets are normal thickness. There is no evidence of stenosis. There is trivial regurgitation. Pulmonic valve: Not well visualized. There is no significant regurgitation. Aorta: Aortic arch: The aortic arch is appears normal. The aortic root is not dilated. Pericardium: There is no significant pericardial effusion. Pulmonary arteries: Not well visualized. Systolic pressure can not be accurately estimated. Systemic veins: Inferior vena cava: Not well visualized. Measurements Left ventricle Value Ref Aortic valve continued Value Ref RYAN, LAX 5.7 cm 4.2 - 5.8 VTI, S 21.8 cm ---- ESD, LAX 4.0 cm 2.5 - 4.0 Mean grad, S 3.0 mm Hg ---- FS, LAX 30 % 25 - 43 Peak grad, S 7.0 mm Hg ---- PW, ED, LAX (H) 1.5 cm 0.6 - 1.0 EF 57 % 52 - 72 Mitral valve Value Ref E', lat anayeli, TDI (L) 7.5 cm/sec >=10.0 Peak E 0.97 m/sec -- -- E/e', lat anayeli, 13 Peak A 0.44 m/sec ---- TDI Decel time 185 ms ---- Peak grad, D 3.7 mm Hg ---- LVOT Value Ref Peak E/A ratio 2.2 ---- Peak marcos, S 0.98 m/sec Mean grad, S 2 mm Hg Pulmonic valve Value Ref Peak v, S 1.1 m/sec ---- Ventricular septum Value Ref Peak grad, S 5.0 mm Hg ---- IVS, ED (H) 1.5 cm 0.6 - 1.0 Aortic root Value Ref Right ventricle Value Ref Root diam 3.3 cm <5.1 RYAN, LAX 2.6 cm Ascending aorta Value Ref Left atrium Value Ref AAo AP diam, S 3.0 cm ---- AP dim, ES 3.40 cm 3.00 - 4.00 Aortic arch Value Ref Arch diam 3.4 cm ---- Right atrium Value Ref Estimated RAP 8 mm Hg Decending aorta Value Ref Shashi peak marcos 0.83 m/sec ---- Aortic valve Value Ref Anayeli diam, ED 2.4 cm Peak v, S 1.32 m/sec Legend: (L) and (H) janelle values outside specified reference range. Prepared and electronically signed by Jacinto Chavez MD 08/19/2018 14:32
[2018-08-19] MEDS: Azithromycin 500 mg/250 ml NS 500 MG/250 ML BAG IVPB SCH (16:46)
[2018-08-19] MEDS: Enoxaparin(*) 40 MG/0.4 ML SYR SUBCUT SCH (16:46)
[2018-08-19] MEDS: cefTRIAXone(*) 1 GM in NS 0.9% 50 ML* 50 ML IVPB SCH (18:13)
[2018-08-19] MEDS: Vancomycin(*) 1,500 MG in NS 0.9% 250 ML* 250 ML IVPB SCH (18:20)
[2018-08-20] MEDS: Vancomycin(*) 1,500 MG in NS 0.9% 250 ML* 250 ML IVPB SCH ×4 (01:09→18:56)
[2018-08-20] MEDS: Albuterol/Ipratropium NEB.SOL* Albuterol 2.5 MG/Ipratropium 0.5 MG 3 ML INH SCH ×2 (02:59→08:44)
[2018-08-20] MEDS: Acetaminophen TAB* 325 MG PO PRN ×3 (06:09→14:30)
[2018-08-20 06:23] LABS: ABS Lymphocytes 2.3 10^3/ul (1.0-4.8); ABS Monocytes 1.5 10^3/ul (0-0.8); ABS Neutrophils 9.8 10^3/ul (1.5-7.7); Eosinophil % 0.3 %; Hematocrit 38 % (42-52); Hemoglobin 12.1 g/dL (14.0-18.0); Lymphocyte % 16.8 %; Mean Corpuscular HGB Conc 32 g/dL (31-36); Mean Corpuscular Hemoglobin 26 pg (27-31); Mean Corpuscular Volume 81 fL (80-94); Mean Platelet Volume 8.6 fL (7.4-10.4); Nucleated Red Blood Cells % 0.2; Platelet Count 230 10^3/uL (150-450); Red Blood Count 4.75 10^6 /uL (4.18-5.48); Red Cell Distribution Width 16 % (10-15); White Blood Count 13.6 10^3/uL (3.5-10.8)
[2018-08-20 06:34] LABS: Albumin 3.8 g/dL (3.2-5.2); Albumin/Globulin Ratio 0.9 (1-3); BUN/Creatinine Ratio 15.1 (8-20); Calcium 9.4 mg/dL (8.6-10.3); EGFR African American 107.8 (>60); EGFR Non-African American 89.1 (>60); Globulin 4.3 g/dL (2-4); Magnesium 2.2 mg/dL (1.9-2.7); Potassium 4.7 mmol/L (3.5-5.0); Total Bilirubin 0.3 mg/dL (0.2-1.0); Total Protein 8.1 g/dL (6.4-8.9)
[2018-08-20] MEDS: Furosemide IV* 10 MG/ML 2 ML VIAL (20 MG) IV SLOW PU SCH (08:16)
--- NOTE | 2018-08-20 09:27 | PN ---
Progress Note - Progress Note Date of Service: 08/20/18 - Pulmonary note Note: Pt seen and examined at bedside. Pt sitting up in recliner. Reports improvement in SOB, having cough with yellow phlegm. LE swelling is improved. Active Medications Generic Name Dose Route Start Last Admin Trade Name Freq PRN Reason Stop Dose Admin Acetaminophen 650 mg 08/18/18 15:13 08/20/18 08:16 Tylenol Tab* PO 650 mg Q4H PRN Administration FEVER/PAIN Albuterol 2.5 mg 08/19/18 00:54 08/19/18 04:26 Ventolin 2.5 Mg/3 Ml Neb.Erin* INH 2.5 mg Q2H PRN Administration SOB/WHEEZING Enoxaparin Sodium 40 mg 08/18/18 16:00 08/19/18 16:46 Lovenox(*) SUBCUT 40 mg Q24H GER Administration Furosemide 20 mg 08/19/18 13:00 08/20/18 08:16 Lasix Iv* IV SLOW PU 20 mg DAILY GER Administration Azithromycin 500 mg in 250 mls @ 250 mls/hr 08/18/18 17:00 08/19/18 16:46 Zithromax 500 Mg/250 Ml IVPB 250 mls/hr Q24H GER Administration Ceftriaxone Sodium 1 gm/ 50 mls @ 200 mls/hr 08/18/18 18:30 08/19/18 18:13 Sodium Chloride IVPB 200 mls/hr 1800 GER Administration Vancomycin HCl 1,500 mg/ 250 mls @ 166.667 mls/hr 08/19/18 18:00 08/20/18 06: 09 Sodium Chloride IVPB 166.667 mls/hr Q6HR GER Administration Pharmacy Consult 1 note 08/19/18 10:29 Vancomycin Per Pharmacy* FOLLOW UP . PRN PER PROTOCOL Pharmacy Profile Note 1 note 08/20/18 11:30 Vancomycin Trough Check FOLLOW UP 08/20/18 11:31 ONCE ONE Vital Signs Temp Pulse Resp BP Pulse Ox 99.3 F 83 21 170/74 90 08/20/18 06:00 08/20/18 06:00 08/20/18 06:00 08/20/18 05:02 08/20/18 06:00 O/E: Pt in NAD, morbidly obese male HEENT: PERRLA, no JVD Lungs: Distant breath sounds, wheeze+ CVS: S1, S2+, regular Abd: Obese, BS+ Ext: Edema+, chronic skin changes Neuro: ALert, awake, no focal deficits Laboratory Results - last 24 hr 08/20/18 08/20/18 06:00 06:00 WBC 13.6 H RBC 4.75 Hgb 12.1 L Hct 38 L MCV 81 MCH 26 L MCHC 32 RDW 16 H Plt Count 230 MPV 8.6 Neut % (Auto) 71.9 Lymph % (Auto) 16.8 [place] % (Auto) 10.8 Eos % (Auto) 0.3 Baso % (Auto) 0.2 Absolute Neuts (auto) 9.8 H Absolute Lymphs (auto) 2.3 Absolute Monos (auto) 1.5 H Absolute Eos (auto) 0.0 Absolute Basos (auto) 0.0 Absolute Nucleated RBC 0.0 Nucleated RBC % 0.2 Sodium 137 Potassium 4.7 Chloride 96 L Carbon Dioxide 40 H Anion Gap 1 L BUN 14 Creatinine 0.93 Est GFR ( Amer) 107.8 Est GFR (Non-Af Amer) 89.1 BUN/Creatinine Ratio 15.1 Glucose 115 H Calcium 9.4 Magnesium 2.2 Total Bilirubin 0.30 AST 21 ALT 21 Alkaline Phosphatase 55 Total Protein 8.1 Albumin 3.8 Globulin 4.3 H Albumin/Globulin Ratio 0.9 L I/R: 43 y o morbidly obese male with h/o asthma a/w worsening SOB, LE swelling and pain, was admitted for acute asthma exacerbation/bronchitis and cellulitis of LE. Pt had worsening of hypercapnic resp failure and was transferred to ICU for NIPPV. Pt had not required intubation. He has been tolerating BiPAP very well Has wheeze on auscultation, will change nebs to q 6hrs while awake Pt has h/o asthma Pt`s body habitus concerning for sleep apnea and OHS He has chronic hypercapnia Pt would benefit from Trilogy He is currently tolerating BiPAP however unable to correct hypercapnia and would therefore need Trilogy He would need sleep study and AVPAS titration as out pt Importance of compliance with positive airway pressure was discussed c/w abx for PNA and LE cellulitis c/w Lasix PT/OT OOB to chair and ambulate as tolerated Pt would need evaluation in [place] [facility] for wt loss Will f/u in pulm clinic as out pt DVT px Pt to be transferred to regular medical floor under Dr Noel`s service D/w Pt at bedside and Dr Noel over phone
[2018-08-20] MEDS ORDERED: Vancomycin Trough Check NOTE FOLLOW UP ONE (11:30)
[2018-08-20] MEDS: Albuterol 2.5 MG/3 ML NEB.SOL* (0.083%) INH SCH ×2 (12:48→19:42)
[2018-08-20] MEDS ORDERED: Naproxen TAB* 250 MG PO PRN (14:46)
[2018-08-20] MEDS: Enoxaparin(*) 40 MG/0.4 ML SYR SUBCUT SCH (15:23)
[2018-08-20] MEDS ORDERED: hydrALAZINE IV* 20 MG/ML VIAL IV SLOW PU PRN (16:18)
[2018-08-20] MEDS: Azithromycin 500 mg/250 ml NS 500 MG/250 ML BAG IVPB SCH (17:47)
[2018-08-20] MEDS: amLODIPine TAB* 5 MG PO SCH (18:57)
[2018-08-20] MEDS: cefTRIAXone(*) 1 GM in NS 0.9% 50 ML* 50 ML IVPB SCH ×2 (18:58→21:37)
[2018-08-21] MEDS: Vancomycin(*) 1,500 MG in NS 0.9% 250 ML* 250 ML IVPB SCH ×5 (00:32→23:43)
[2018-08-21] MEDS: Albuterol 2.5 MG/3 ML NEB.SOL* (0.083%) INH SCH ×2 (01:20→07:57)
[2018-08-21 05:53] LABS: ABS Basophils 0.1 10^3/ul (0-0.2); ABS Eosinophils 0.2 10^3/ul (0-0.6); ABS Lymphocytes 3.1 10^3/ul (1.0-4.8); ABS Monocytes 1.4 10^3/ul (0-0.8); ABS Neutrophils 7.2 10^3/ul (1.5-7.7); Eosinophil % 1.6 %; Hematocrit 38 % (42-52); Hemoglobin 12.1 g/dL (14.0-18.0); Lymphocyte % 25.7 %; Mean Corpuscular HGB Conc 32 g/dL (31-36); Mean Corpuscular Hemoglobin 25 pg (27-31); Mean Corpuscular Volume 80 fL (80-94); Mean Platelet Volume 8.7 fL (7.4-10.4); Nucleated Red Blood Cells % 0.1; Platelet Count 223 10^3/uL (150-450); Red Blood Count 4.77 10^6 /uL (4.18-5.48); Red Cell Distribution Width 16 % (10-15); White Blood Count 11.9 10^3/uL (3.5-10.8)
[2018-08-21 06:08] LABS: Albumin 3.7 g/dL (3.2-5.2); Albumin/Globulin Ratio 0.9 (1-3); BUN/Creatinine Ratio 15.6 (8-20); Calcium 9.1 mg/dL (8.6-10.3); EGFR Non-African American 92.5 (>60); Globulin 4.2 g/dL (2-4); Magnesium 2.2 mg/dL (1.9-2.7); Potassium 4.5 mmol/L (3.5-5.0); Total Bilirubin 0.4 mg/dL (0.2-1.0); Total Protein 7.9 g/dL (6.4-8.9)
[2018-08-21] MEDS: Acetaminophen TAB* 325 MG PO PRN (07:42)
[2018-08-21] MEDS: Furosemide IV* 10 MG/ML 2 ML VIAL (20 MG) IV SLOW PU SCH (07:52)
[2018-08-21] MEDS ORDERED: Albuterol 2.5 MG/3 ML NEB.SOL* (0.083%) INH PRN (08:02)
[2018-08-21] MEDS ORDERED: Acetaminophen TAB* 325 MG PO PRN (08:31)
--- NOTE | 2018-08-21 08:43 | PN ---
Subjective Date of Service: 08/21/18 Interval History: Wound with MRSA and E. coli. Still on vanc and CTX. Hypertensive after NSAID dose yesterday for headache - likely with underlying/ undiagnosed HTN as well. Pt denying SOB, CP, fevers, chills. He denies pain in chest or over leg wound. He reports intermittent headache that is mild now. Cough is improving and nonproductive. Would like to go home but understands he should stay while still requiring oxygen and IV abx and furosemide. Objective Active Medications: Acetaminophen (Tylenol Tab*) 975 mg PO Q8H PRN PRN Reason: FEVER/PAIN Albuterol (Ventolin 2.5 Mg/3 Ml Neb.Erin*) 2.5 mg INH Q4H PRN PRN Reason: SOB/WHEEZING Amlodipine Besylate (Norvasc Tab*) 5 mg PO 1900 [facility] Last Admin: 08/20/18 18:57 Dose: 5 mg Azithromycin (Zithromax Tab*) 250 mg PO DAILY [facility] Stop: 08/22/18 09:01 Enoxaparin Sodium (Lovenox(*)) 40 mg SUBCUT Q24H [facility] Last Admin: 08/20/18 15:23 Dose: 40 mg Furosemide (Lasix Iv*) 20 mg IV SLOW PU DAILY [facility] Last Admin: 08/21/18 07:52 Dose: 20 mg Hydralazine HCl (Apresoline Iv*) 5 mg IV SLOW PU Q6H PRN PRN Reason: SBP > 185 Last Admin: 08/20/18 16:27 Dose: 5 mg Vancomycin HCl 1,500 mg/ (Sodium Chloride) 250 mls @ 166.667 mls/hr IVPB Q6HR [facility] Last Admin: 08/21/18 05:40 Dose: 166.667 mls/hr Ceftriaxone Sodium 1 gm/ (Sodium Chloride) 50 mls @ 200 mls/hr IVPB Q24H [facility] Last Admin: 08/20/18 21:37 Dose: 200 mls/hr Pharmacy Consult (Vancomycin Per Pharmacy*) 1 note FOLLOW UP . PRN PRN Reason: PER PROTOCOL Pharmacy Profile Note (Vancomycin Trough Check) 1 note FOLLOW UP 1130 ONE Stop: 08/22/18 11:31 Vital Signs - 8 hr 08/21/18 08/21/18 08/21/18 01:21 03:35 06:16 Temperature 97.3 F 97.6 F Pulse Rate 84 80 79 Respiratory 16 22 24 Rate Blood Pressure 182/68 168/79 (mmHg) O2 Sat by Pulse 95 100 100 Oximetry 08/21/18 07:57 Temperature Pulse Rate 82 Respiratory 20 Rate Blood Pressure (mmHg) O2 Sat by Pulse 97 Oximetry Oxygen Devices in Use Now: Nasal Cannula Appearance: NAD, no increased WOB, pleasant and interactive Ears/Nose/Mouth/Throat: Clear Oropharnyx, Mucous Membranes Moist Neck: NL Appearance and Movements; NL JVP, - - unable to appreciate JVP given habitus Respiratory: - - breath sounds decreased; no wheeze Cardiovascular: RRR Abdominal: - - obese, soft Extremities: - - 1+ pitting edema over ankles b/l; ulcer over lateral L ankle 2- 3 cm without drainage or foul odor, no erythema or increased warmth Neurological: Alert and Oriented x 3 Result Diagrams: 08/21/18 05:40 08/21/18 05:40 Additional Lab and Data: Lab Results 08/18/18 Range/Units 09:26 WBC 15.1 H (3.5-10.8) 10^3/uL RBC 4.90 (4.18-5.48) 10^6 /uL Hgb 12.4 L (14.0-18.0) g/dL Hct 39 L (42-52) % MCV 79 L (80-94) fL MCH 25 L (27-31) pg MCHC 32 (31-36) g/dL RDW 16 H (10.5-15) % Plt Count 218 (150-450) 10^3/uL MPV 8.6 (7.4-10.4) fL Neut % (Auto) Pending Lymph % (Auto) Pending [place] % (Auto) Pending Eos % (Auto) Pending Baso % (Auto) Pending Absolute Neuts (auto) Pending Absolute Lymphs (auto) Pending Absolute Monos (auto) Pending Absolute Eos (auto) Pending Absolute Basos (auto) Pending Absolute Nucleated RBC Pending Nucleated RBC % Pending Microbiology and Other Data: Microbiology 08/19/18 08:23 Skin and Soft Tissue MRSA/MSSA (PCR - Final Leg Left Mrsa Positive S.aureus Positive Gram Stain - Final Wound Culture - Preliminary Staphylococcus Aureus Escherichia Coli 08/18/18 17:38 Aerobic Blood Culture - Preliminary Blood Venous No Growth Day 2 Anaerobic Blood Culture - Preliminary No Growth Day 2 08/18/18 15:36 Aerobic Blood Culture - Preliminary Blood Venous No Growth Day 2 Anaerobic Blood Culture - Preliminary No Growth Day 2 08/18/18 21:50 Gram Stain - Final Sputum 08/18/18 21:50 Nasal Screen MRSA (PCR) - Final Nasal Mrsa Not Detected 08/18/18 18:55 Legionella Urinary Antigen - Final Urine Negative Legionella Antigen Streptococcus pneumoniae Ag Screen - Final Negative S. pneumo Antigen Assess/Plan/Problems-Billing Assessment: 43M with morbid obesity, asthma, presents with worsening SOB, LE swelling and pain, admitted for asthma exacerbation, possible PNA, and cellulitis of LE. Wound culture growing MRSA and E. coli. Also found with volume overload - possible HFpEF. - Patient Problems (1) Respiratory infection Comment: possible PNA. Cont CTX (treating LE wound) and has few more days of azithro. (2) Asthma exacerbation Comment: Had worsening of hypercapnic respiratory failure, with stay in ICU for BiPAP. Likely with sleep apnea and OHS. - cont nebs, now without SOB - cont BiPAP, would benefit from Trilogy - f/u with Dr. Mueller as outpatient for sleep study and AVPAS titration - wean O2 as tolerated (3) Cellulitis Comment: Wound culture positive for MRSA and E. coli. Pending sensitivities to switch to oral. - cont vanc (/ - ) and CTX (08/18 - ) - diuresing to improve LE edema - wound care (4) Morbid obesity due to excess calories Comment: Refer to [facility] (5) Volume overload Comment: Possible h/o HTN and now dHF. - cont furosemide - switch to PO - cont amlodipine 5mg nightly (6) DVT prophylaxis Comment: lovenox
[2018-08-21] MEDS: Azithromycin TAB* 250 MG PO SCH (13:08)
[2018-08-21] MEDS: Enoxaparin(*) 40 MG/0.4 ML SYR SUBCUT SCH (16:37)
[2018-08-21] MEDS: cefTRIAXone(*) 1 GM in NS 0.9% 50 ML* 50 ML IVPB SCH (20:32)
[2018-08-21] MEDS: amLODIPine TAB* 5 MG PO SCH (20:32)
[2018-08-22] MEDS: Vancomycin(*) 1,500 MG in NS 0.9% 250 ML* 250 ML IVPB SCH (05:13)
[2018-08-22 06:54] LABS: Hematocrit 38 % (42-52); Hemoglobin 12.2 g/dL (14.0-18.0); Mean Corpuscular HGB Conc 32 g/dL (31-36); Mean Corpuscular Hemoglobin 25 pg (27-31); Mean Corpuscular Volume 79 fL (80-94); Mean Platelet Volume 8.4 fL (7.4-10.4); Platelet Count 230 10^3/uL (150-450); Red Cell Distribution Width 15 % (10-15); White Blood Count 12.2 10^3/uL (3.5-10.8)
[2018-08-22 07:13] LABS: BUN/Creatinine Ratio 16.3 (8-20); Calcium 9.1 mg/dL (8.6-10.3); EGFR African American 128.3 (>60); Magnesium 2.1 mg/dL (1.9-2.7); Potassium 4.4 mmol/L (3.5-5.0)
[2018-08-22] MEDS: Azithromycin TAB* 250 MG PO SCH (08:26)
[2018-08-22] MEDS: Furosemide TAB* 40 MG PO SCH (08:26)
--- NOTE | 2018-08-22 09:04 | PN ---
Subjective Date of Service: 08/22/18 Interval History: Having occasional non productive cough. Overnight had pulse oximetry done and he does qualify for oxygen. No chest pain, no shortness of breath. Left leg ulcer: continues to have scant purulent discharge. Objective Active Medications: Acetaminophen (Tylenol Tab*) 975 mg PO Q8H PRN PRN Reason: FEVER/PAIN Last Admin: 08/21/18 23:42 Dose: 975 mg Albuterol (Ventolin 2.5 Mg/3 Ml Neb.Erin*) 2.5 mg INH Q4H PRN PRN Reason: SOB/WHEEZING Amlodipine Besylate (Norvasc Tab*) 5 mg PO 1900 [facility] Last Admin: 08/21/18 20:32 Dose: 5 mg Azithromycin (Zithromax Tab*) 250 mg PO DAILY [facility] Stop: 08/22/18 09:01 Last Admin: 08/22/18 08:26 Dose: 250 mg Enoxaparin Sodium (Lovenox(*)) 40 mg SUBCUT Q24H [facility] Last Admin: 08/21/18 16:37 Dose: 40 mg Furosemide (Lasix Tab*) 40 mg PO DAILY [facility] Last Admin: 08/22/18 08:26 Dose: 40 mg Hydralazine HCl (Apresoline Iv*) 5 mg IV SLOW PU Q6H PRN PRN Reason: SBP > 185 Last Admin: 08/20/18 16:27 Dose: 5 mg Vancomycin HCl 1,500 mg/ (Sodium Chloride) 250 mls @ 166.667 mls/hr IVPB Q6HR [facility] Last Admin: 08/22/18 05:13 Dose: 166.667 mls/hr Ceftriaxone Sodium 1 gm/ (Sodium Chloride) 50 mls @ 200 mls/hr IVPB Q24H [facility] Last Admin: 08/21/18 20:32 Dose: 200 mls/hr Pharmacy Consult (Vancomycin Per Pharmacy*) 1 note FOLLOW UP . PRN PRN Reason: PER PROTOCOL Pharmacy Profile Note (Vancomycin Trough Check) 1 note FOLLOW UP 1130 ONE Stop: 08/22/18 11:31 Vital Signs - 8 hr 08/22/18 08/22/18 01:52 03:30 Temperature 97.0 F Pulse Rate 73 Respiratory 17 Rate Blood Pressure 144/76 (mmHg) O2 Sat by Pulse 93 97 Oximetry Oxygen Devices in Use Now: Nasal Cannula Appearance: Obese male, sitting on chair, not in distress. Eyes: PERRLA Ears/Nose/Mouth/Throat: Mucous Membranes Moist Respiratory: - - mild expiratory wheezing. Cardiovascular: RRR, - - 1+ pittting edema bilateral lower extremities. Abdominal: NL Sounds; No Tenderness; No Distention Skin: - - left leg ulcer noted with purulent drainage. Neurological: Alert and Oriented x 3 Result Diagrams: 08/22/18 06:33 08/22/18 06:33 Additional Lab and Data: Lab Results 08/18/18 Range/Units 09:26 WBC 15.1 H (3.5-10.8) 10^3/uL RBC 4.90 (4.18-5.48) 10^6 /uL Hgb 12.4 L (14.0-18.0) g/dL Hct 39 L (42-52) % MCV 79 L (80-94) fL MCH 25 L (27-31) pg MCHC 32 (31-36) g/dL RDW 16 H (10.5-15) % Plt Count 218 (150-450) 10^3/uL MPV 8.6 (7.4-10.4) fL Neut % (Auto) Pending Lymph % (Auto) Pending [place] % (Auto) Pending Eos % (Auto) Pending Baso % (Auto) Pending Absolute Neuts (auto) Pending Absolute Lymphs (auto) Pending Absolute Monos (auto) Pending Absolute Eos (auto) Pending Absolute Basos (auto) Pending Absolute Nucleated RBC Pending Nucleated RBC % Pending Microbiology and Other Data: Microbiology 08/19/18 08:23 Skin and Soft Tissue MRSA/MSSA (PCR - Final Leg Left Mrsa Positive S.aureus Positive Gram Stain - Final Wound Culture - Preliminary Staphylococcus Aureus Escherichia Coli 08/18/18 17:38 Aerobic Blood Culture - Preliminary Blood Venous No Growth Day 2 Anaerobic Blood Culture - Preliminary No Growth Day 2 08/18/18 15:36 Aerobic Blood Culture - Preliminary Blood Venous No Growth Day 2 Anaerobic Blood Culture - Preliminary No Growth Day 2 08/18/18 21:50 Gram Stain - Final Sputum 08/18/18 21:50 Nasal Screen MRSA (PCR) - Final Nasal Mrsa Not Detected 08/18/18 18:55 Legionella Urinary Antigen - Final Urine Negative Legionella Antigen Streptococcus pneumoniae Ag Screen - Final Negative S. pneumo Antigen Assess/Plan/Problems-Billing Assessment: 43M with morbid obesity, asthma, presents with worsening SOB, LE swelling and pain, admitted for asthma exacerbation, possible PNA, and cellulitis of LE. Wound culture growing MRSA and E. coli. Also found with volume overload - possible HFpEF. - Patient Problems (1) Asthma exacerbation Current Visit: Yes Status: Acute Code(s): J45.901 - UNSPECIFIED ASTHMA WITH (ACUTE) EXACERBATION SNOMED Code(s): 652540729 Comment: Had worsening of hypercapnic respiratory failure, with stay in ICU for BiPAP. Likely with sleep apnea and OHS. - cont nebs, now without SOB - cont BiPAP, would benefit from Trilogy - f/u with Dr. Mueller as outpatient for sleep study and AVPAS titration - overnight pulse oximetry done 08/21/18- does qualify for oxygen. (2) Cellulitis Current Visit: Yes Status: Acute Code(s): L03.90 - CELLULITIS, UNSPECIFIED SNOMED Code(s): 831623157 Comment: Wound culture positive for MRSA and E. coli. s/p vanc 08/19-08/22. and rocephin 08/18-08/22. will start bactrim based on sensitivities. - diuresing to improve LE edema - wound care (3) DVT prophylaxis Current Visit: Yes Status: Acute Code(s): Z29.9 - ENCOUNTER FOR PROPHYLACTIC MEASURES, UNSPECIFIED SNOMED Code(s): 290337129 Comment: lovenox (4) Respiratory infection Current Visit: Yes Status: Acute Code(s): J98.8 - OTHER SPECIFIED RESPIRATORY DISORDERS SNOMED Code(s): 666465562 Comment: possible pneumonia,. was on rocephin, azithromycin combination, but will change to bactrim to cover for left leg ulcer as well. (5) Volume overload Current Visit: Yes Status: Acute Code(s): E87.70 - FLUID OVERLOAD, UNSPECIFIED SNOMED Code(s): 02952940 Comment: Possible h/o HTN and now dHF. EF 55-60% - Continue PO lasix. - On amlodipine. Status and Disposition: Will need home O2.
[2018-08-22] MEDS ORDERED: Vancomycin Trough Check NOTE FOLLOW UP ONE (11:30)
[2018-08-22] MEDS ORDERED: Furosemide IV* 10 MG/ML 2 ML VIAL (20 MG) IV ONE (14:27)
[2018-08-22] MEDS: Enoxaparin(*) 40 MG/0.4 ML SYR SUBCUT SCH (15:37)
[2018-08-22] MEDS: amLODIPine TAB* 5 MG PO SCH (20:39)
[2018-08-22] MEDS: Sulfamethox/Trimethoprim DS 800/160* TAB PO SCH (20:39)
[2018-08-23 06:40] LABS: BUN/Creatinine Ratio 13.8 (8-20); Calcium 9.4 mg/dL (8.6-10.3); EGFR African American 116.4 (>60); EGFR Non-African American 96.2 (>60); Potassium 4.6 mmol/L (3.5-5.0)
[2018-08-23] MEDS ORDERED: Carvedilol TAB* 3.125 MG PO SCH (09:00)
[2018-08-23] MEDS: Furosemide TAB* 40 MG PO SCH (09:01)
[2018-08-23] MEDS: Sulfamethox/Trimethoprim DS 800/160* TAB PO SCH (09:01)
--- NOTE | 2018-08-23 11:42 | PN ---
Subjective Date of Service: 08/23/18 Interval History: Doing well, no complaints today, able to stay off of oxygen, but desats with activity. Objective Active Medications: Acetaminophen (Tylenol Tab*) 975 mg PO Q8H PRN PRN Reason: FEVER/PAIN Last Admin: 08/21/18 23:42 Dose: 975 mg Albuterol (Ventolin 2.5 Mg/3 Ml Neb.Erin*) 2.5 mg INH Q4H PRN PRN Reason: SOB/WHEEZING Amlodipine Besylate (Norvasc Tab*) 5 mg PO 1900 [facility] Last Admin: 08/22/18 20:39 Dose: 5 mg Carvedilol (Coreg Tab*) 3.125 mg PO BID [facility] Last Admin: 08/23/18 09:01 Dose: 3.125 mg Enoxaparin Sodium (Lovenox(*)) 40 mg SUBCUT Q24H [facility] Last Admin: 08/22/18 15:37 Dose: 40 mg Furosemide (Lasix Tab*) 40 mg PO DAILY [facility] Last Admin: 08/23/18 09:01 Dose: 40 mg Hydralazine HCl (Apresoline Iv*) 5 mg IV SLOW PU Q6H PRN PRN Reason: SBP > 185 Last Admin: 08/20/18 16:27 Dose: 5 mg Trimethoprim/Sulfamethoxazole (Bactrim Ds 800/160 Tab*) 1 tab PO BID [facility] Last Admin: 08/23/18 09:01 Dose: 1 tab Vital Signs - 8 hr 08/23/18 08:00 Temperature 97.5 F Pulse Rate 70 Respiratory 18 Rate Blood Pressure 142/82 (mmHg) O2 Sat by Pulse 97 Oximetry Oxygen Devices in Use Now: Nasal Cannula Appearance: obese male sitting on chair, not in distress Respiratory: Clear to Auscultation, - - no wheezing/rales/rhonchi Cardiovascular: NL Sounds; No Murmurs; No JVD, RRR, - - lower extremity edema Abdominal: NL Sounds; No Tenderness; No Distention, No Hepatosplenomegaly Skin: - - left lower extremity ulcer with mild erythema Neurological: Alert and Oriented x 3 Result Diagrams: 08/22/18 06:33 08/23/18 06:10 Additional Lab and Data: Lab Results 08/18/18 Range/Units 09:26 WBC 15.1 H (3.5-10.8) 10^3/uL RBC 4.90 (4.18-5.48) 10^6 /uL Hgb 12.4 L (14.0-18.0) g/dL Hct 39 L (42-52) % MCV 79 L (80-94) fL MCH 25 L (27-31) pg MCHC 32 (31-36) g/dL RDW 16 H (10.5-15) % Plt Count 218 (150-450) 10^3/uL MPV 8.6 (7.4-10.4) fL Neut % (Auto) Pending Lymph % (Auto) Pending [place] % (Auto) Pending Eos % (Auto) Pending Baso % (Auto) Pending Absolute Neuts (auto) Pending Absolute Lymphs (auto) Pending Absolute Monos (auto) Pending Absolute Eos (auto) Pending Absolute Basos (auto) Pending Absolute Nucleated RBC Pending Nucleated RBC % Pending Microbiology and Other Data: Microbiology 08/19/18 08:23 Skin and Soft Tissue MRSA/MSSA (PCR - Final Leg Left Mrsa Positive S.aureus Positive Gram Stain - Final Wound Culture - Preliminary Staphylococcus Aureus Escherichia Coli 08/18/18 17:38 Aerobic Blood Culture - Preliminary Blood Venous No Growth Day 2 Anaerobic Blood Culture - Preliminary No Growth Day 2 08/18/18 15:36 Aerobic Blood Culture - Preliminary Blood Venous No Growth Day 2 Anaerobic Blood Culture - Preliminary No Growth Day 2 08/18/18 21:50 Gram Stain - Final Sputum 08/18/18 21:50 Nasal Screen MRSA (PCR) - Final Nasal Mrsa Not Detected 08/18/18 18:55 Legionella Urinary Antigen - Final Urine Negative Legionella Antigen Streptococcus pneumoniae Ag Screen - Final Negative S. pneumo Antigen Assess/Plan/Problems-Billing Assessment: 43M with morbid obesity, asthma, presents with worsening SOB, LE swelling and pain, admitted for asthma exacerbation, possible PNA, and cellulitis of LE. Wound culture growing MRSA and E. coli. Also found with volume overload - possible HFpEF. - Patient Problems (1) Asthma exacerbation Current Visit: Yes Status: Acute Code(s): J45.901 - UNSPECIFIED ASTHMA WITH (ACUTE) EXACERBATION SNOMED Code(s): 453961619 Comment: Had worsening of hypercapnic respiratory failure, with stay in ICU for BiPAP. Likely with sleep apnea and OHS. - cont nebs, now without SOB - f/u with Dr. Mueller as outpatient for sleep study and AVPAS titration - overnight pulse oximetry done 08/21/18- does qualify for oxygen. (2) Cellulitis Current Visit: Yes Status: Acute Code(s): L03.90 - CELLULITIS, UNSPECIFIED SNOMED Code(s): 810223840 Comment: Wound culture positive for MRSA and E. coli. s/p vanc 08/19-08/22. and rocephin 08/18-08/22. Now on bactrim - diuresing to improve LE edema - wound care (3) DVT prophylaxis Current Visit: Yes Status: Acute Code(s): Z29.9 - ENCOUNTER FOR PROPHYLACTIC MEASURES, UNSPECIFIED SNOMED Code(s): 177537336 Comment: lovenox (4) Respiratory infection Current Visit: Yes Status: Acute Code(s): J98.8 - OTHER SPECIFIED RESPIRATORY DISORDERS SNOMED Code(s): 259242583 Comment: possible pneumonia,. was on rocephin, azithromycin combination, but will change to bactrim to cover for left leg ulcer as well. (5) Volume overload Current Visit: Yes Status: Acute Code(s): E87.70 - FLUID OVERLOAD, UNSPECIFIED SNOMED Code(s): 76801810 Comment: Possible h/o HTN and now dHF. EF 55-60% - Continue PO lasix. - On amlodipine. - started coreg. hold off on KAYLEN inhibitor due to him being on bactrim for now as this could cause elevated K+. Status and Disposition: Discharge home once we arrange home oxygen
[2018-08-23 13:56] VITALS: BP 149/97
--- NOTE | 2018-08-23 18:45 | DS ---
CC: Dr. Adrien Manzanares; Dr. Mueller * DISCHARGE SUMMARY: DATE OF ADMISSION: 08/18/18 DATE OF DISCHARGE: 08/23/18 PRIMARY CARE PROVIDER: Dr. Adrien Manzanares. REASON FOR THE ADMISSION: Shortness of breath, cough, and left lower leg wound x3 weeks. ADMISSION DIAGNOSES: 1. Shortness of breath, likely is an exacerbation versus fluid overload. 2. Left lower leg ulcer. HOSPITAL COURSE: This is a 43-year-old male with past medical history of morbid obesity and asthma who had come to the emergency room because of progressive shortness of breath as well as left lower leg wound infection. The patient was admitted to the hospital, was started on Solu-Medrol with DuoNebs, was started on prednisone 40 mg daily. The patient also met criteria for sepsis as well as was found to have a cough, so was started on antibiotics for possible bronchitis versus pneumonia. Legionella and strep urine antigen were sent, which were negative. The patient was also started on antibiotics for the left lower leg ulcer. The patient underwent transthoracic echocardiogram, which found ejection fraction of 55% to 60%. Initial antibiotics were Rocephin, azithromycin; however, this was then changed to vancomycin and Rocephin to cover for MRSA as well as E. coli, which was found in his wound culture. The patient was started on BiPAP on admission and slowly weaned off to oxygen. During the nighttime, the patient was placed on BiPAP/CPAP. The patient was also started on amlodipine, Coreg as well as Lasix for volume overload/ diastolic congestive heart failure. DISCHARGE MEDICATIONS: Include: 1. Albuterol inhaler 1 puff every 6 hours as needed. 2. Amlodipine 5 mg at bedtime. 3. Carvedilol 3.125 mg twice daily. 4. Lasix 40 mg daily. 5. Bactrim 800 mg/160 mg 1 tab b.i.d. for the next 10 days. DISCHARGE INSTRUCTIONS: Include: 1. The patient to follow up with Dr. Adrien Manzanares, primary care provider, in 1 to 2 weeks. 2. Follow up with Dr. Mueller in 1 to 2 weeks. The patient had been instructed to use his oxygen at bedtime as well as, as needed with exertion. 3. The patient to follow up with Dr. Mueller for a need for sleep study. The patient to return to the ER for any chest pain, worsening shortness of breath, wheezing, fever, or worsening of the left leg ulcer. 4. The patient verbalized understanding of the instructions. 5. The patient to return to work next Thursday. DISCHARGE DIAGNOSES: Include: 1. Pneumonia with asthma exacerbation. 2. Left lower extremity ulcer with cellulitis. 3. Pulmonary edema with diastolic congestive heart failure. 4. Probable sleep apnea. PHYSICAL EXAMINATION: For my physical examination, please see my progress note from today. DISCHARGE CONDITION: Fair. Stable. The patient to be discharged home with regular heart-healthy diet, fluid restriction. [id number]/[facility] #: [id number] VINNIE
== END 2018-08-23 15:20 | disposition home or self-care (01) | DRG 720 ==
LOC: ED 08:56 → MEDTELE 15:13 → ICU 21:08 → MED 08-20 09:18
PROVIDERS: ADMIT Nurse Practitioner; ATTEND Internal Medicine
PROC: 5A09357 Assistance with Respiratory Ventilation, Less than 24 Consecutive Hours, Continuous Positive Airway Pressure (ICD-10-PCS; principal; 2018-08-18)
PROC: 0T9B70Z Drainage of Bladder with Drainage Device, Via Natural or Artificial Opening (ICD-10-PCS; 2018-08-19)
DX: A41.9 Sepsis, unspecified organism (principal); J18.9 Pneumonia, unspecified organism; J96.92 Respiratory failure, unspecified with hypercapnia; J96.91 Respiratory failure, unspecified with hypoxia; J45.901 Unspecified asthma with (acute) exacerbation; L97.929 Non-pressure chronic ulcer of unspecified part of left lower leg with unspecified severity; E87.2 Acidosis; E66.2 Morbid (severe) obesity with alveolar hypoventilation; L03.116 Cellulitis of left lower limb; I50.30 Unspecified diastolic (congestive) heart failure; Z68.44 Body mass index [BMI] 60.0-69.9, adult; I11.0 Hypertensive heart disease with heart failure; F41.9 Anxiety disorder, unspecified; R51 Headache; T39.395A Adverse effect of other nonsteroidal anti-inflammatory drugs [NSAID], initial encounter; Y92.239 Unspecified place in hospital as the place of occurrence of the external cause; B95.62 Methicillin resistant Staphylococcus aureus infection as the cause of diseases classified elsewhere; B96.20 Unspecified Escherichia coli [E. coli] as the cause of diseases classified elsewhere; Z80.3 Family history of malignant neoplasm of breast; Z82.49 Family history of ischemic heart disease and other diseases of the circulatory system; Z56.0 Unemployment, unspecified; Z72.89 Other problems related to lifestyle; Z83.2 Family history of diseases of the blood and blood-forming organs and certain disorders involving the immune mechanism
CPT/HCPCS: 36415; 36600; 71045; 71275; 80048; 80053; 80061; 80202; 81003; 81015; 82803; 83036; 83605; 83735; 83880; 84443; 84484; 85025; 85027; 85379; 85610; 86140; 87040; 87070; 87077; 87186; 87205; 87640; 87641; 87899; 93005; 93306; 93970; 94640; 94660; 94762; 99285; A9270-GY; C8929; J0330; J0360; J0456; J0696; J1650; J1885; J1940; J2704; J2930; J3370; J3475; J7512; Q9967

== ENCOUNTER 2018-12-01 20:09 | Emergency (ER) | payer BC, OTHER ==
[2018-12-01] MEDS ORDERED: methylPREDNISolone 125 MG* 2 ML VIAL IV ONE (20:44)
[2018-12-01] MEDS ORDERED: Albuterol 0.5% CONC NEB.SOL* 5 MG/ML 20 ml BOT INH ONE (20:44)
--- NOTE | 2018-12-01 20:45 | ED ---
Shortness of Breath - HPI Summary HPI Summary: Pt is a 43 y/o M presenting to the ED with a chief complaint of shortness of breath worsening last night through today. He reports nonproductive cough w/ associated pleuritic CP. He used his PRN inhaler for asthma w/o relief. He denies fever, orthopnea, or edema. Patient had an admission back in August where he had a negative CTA for PE, and had mild interstitial edema pattern on chest x -ray. Was admitted for CHF/PNA rule out, echo w EF 55%. - History of Current Complaint Chief Complaint: EDShortnessOfBreath Time Seen by Provider: 12/01/18 20:32 Hx Obtained From: Patient Onset/Duration: Lasting Days, Still Present Timing: Constant Current Severity: Moderate Dyspnea At: Rest Aggravating Factors: Nothing Alleviating Factors: Nothing Associated Signs & Symptoms: Cough (Nonproductive), Chest Pain w/Cough Related History: Obesity - Allergy/Home Medications Allergies/Adverse Reactions: Allergies Allergy/AdvReac Type Severity Reaction Status Date / Time No Known Allergies Allergy Verified 08/14/15 11:38 Home Medications: Home Medications amLODIPine TAB* [Norvasc 5 mg TAB*] 5 mg PO DAILY 12/01/18 [History Confirmed ] PMH/Surg Hx/FS Hx/Imm Hx Previously Healthy: Yes Endocrine/Hematology History: Denies: Hx Diabetes, Hx Thyroid Disease Cardiovascular History: Reports: Hx Congestive Heart Failure - DCHF 08/20/18 EF 55 -60%, Hx Hypertension Respiratory History: Reports: Hx Asthma - no medications, Hx Pulmonary Edema - , Hx Sleep Apnea - 08/22/18 Denies: Hx Chronic Obstructive Pulmonary Disease (COPD) GI History: Reports: Other GI Disorders - Fatty liver Denies: Hx Ulcer Musculoskeletal History: Reports: Hx Back Problems Sensory History: Denies: Hx Contacts or Glasses, Hx Hearing Aid Opthamlomology History: Denies: Hx Contacts or Glasses Neurological History: Reports: Hx Headaches, Hx Migraine Infectious Disease History: No Infectious Disease History: Reports: Hx of Known/Suspected MRSA - 08/19/18 LLL wound at [facility] [place] Denies: Hx Clostridium Difficile, Hx Hepatitis, Hx Human Immunodeficiency Virus (HIV), Hx Shingles, Hx Tuberculosis, Hx Known/Suspected VRE, Hx Known/ Suspected VRSA, History Other Infectious Disease, Traveled Outside the [place] in Last 30 Days - Family History Known Family History: Positive: Cardiac Disease - HI, Hypertension, Other - Sickle cell - Social History Alcohol Use: Occasionally Hx Substance Use: No Substance Use Type: Reports: None Hx Tobacco Use: No Smoking Status (MU): Never Smoked Tobacco Have You Smoked in the Last Year: No Review of Systems Negative: Fever Positive: Chest Pain Positive: Shortness Of Breath, Cough. Negative: Other - orthopnea Negative: Edema All Other Systems Reviewed And Are Negative: Yes Physical Exam - Summary Physical Exam Summary: Constitutional: Obese, Alert. (-) Distressed Skin: Warm, Dry HENT: Normocephalic; Atraumatic Eyes: Conjunctiva normal Neck: Musculoskeletal ROM normal neck. (-) JVD, (-) Stridor, (-) Nuchal rigidity Cardio: Rhythm regular, rate normal, Heart sounds normal; Intact distal pulses; Radial pulses are 2+ and symmetric. (-) Murmur Pulmonary/Chest wall: Effort normal. Decreased air entry bilaterally with expiratory wheezes. Dry cough non productive Abd: Soft, (-) tenderness, (-) Distension, (-) Guarding, (-) Rebound Musculoskeletal: (-) Edema Lymph: (-) Cervical adenopathy Neuro: Alert, Oriented x3 Psych: Mood and affect Normal Triage Information Reviewed: Yes Vital Signs On Initial Exam: Initial Vitals Temp Pulse Resp BP Pulse Ox 97.5 F 100 22 167/95 93 12/01/18 20:12 12/01/18 20:12 12/01/18 20:12 12/01/18 20:12 12/01/18 20:12 Vital Signs Reviewed: Yes Diagnostics - Vital Signs Vital Signs Temp Pulse Resp BP Pulse Ox 12/01/18 20:12 97.5 F 100 22 167/95 93 - Laboratory Result Diagrams: 12/01/18 21:02 12/01/18 21:02 Lab Statement: Any lab studies that have been ordered have been reviewed, and results considered in the medical decision making process. - Radiology No standard instances Radiology Interpretation Completed By: ED Physician - CXR - mild interstitial edema, no large infiltrate - EKG 2019 Cardiac Rate: NL - 91bpm EKG Rhythm: Sinus Rhythm ST Segment: Normal Ectopy: None Summary of EKG Findings: EKG at 2019 shows NSR at 91bpm with no STEMI. Re-Evaluation - Re-Evaluation 1st re-eval Re-Evaluation Time: 22:12 Change: Improved Comment: Just finished nebulizer. Feels much better. Pending CXR. Second Eval Re-Evaluation Time: 22:35 Change: Improved - Patient feels better, easy work of breathing on room air. Chest x-ray without obvious infiltrate. Patient be discharged with albuterol and prednisone for 5 days. Course/Dx - Course Course Of Treatment: 43 y/o male w hx asthma p/w KELLY. - Shortness of breath ddx : Most likely asthma. Also consider: PNA - no sputum production, no fevers or chills. No leukocytosis. CXR w/o infiltrate. Low suspicion. PTX - breath sounds equal, no risk factors for PTX, CXR w/o e/o PTX. ACS - no CP, no EKG changes, initial trop not elevated. Low suspicion. CHF - EF 55% on recent echo , no orthopnea, no BLE edema, CXR w mild pulmonary edema. PE - recent neg CTA - Diagnoses Provider Diagnoses: Asthma exacerbation Discharge ED - Sign-Out/Discharge Documenting (check all that apply): Patient Departure Patient Received Moderate/Deep Sedation with Procedure: No - Discharge Plan Condition: Stable Disposition: HOME Prescriptions: Albuterol HFA INHALER* [Ventolin HFA Inhaler*] 1 puff INH Q4H PRN 30 Days #1 mdi PRN Reason: Wheezing predniSONE TAB* [Deltasone TAB*] 50 mg PO DAILY 4 Days #4 tab Patient Education Materials: Asthma (ED) Forms: *Work Release Referrals: Adrien Manzanares MD [Primary Care Provider] - 2 Days Additional Instructions: You were seen in the emergency department for shortness of breath. Take prednisone for 5 days total, he got you're first dose here. Please take albuterol every 4 hours as needed for wheezing. If any studies were not completed at the time of discharge you will be called with the relevant results. Please follow up with your primary care doctor in next 2-3 days and return to emergency department for worsening or concerning symptoms. It was a pleasure taking care of you today. - Billing Disposition and Condition Condition: STABLE Disposition: Home - Attestation Statements Document Initiated by Scribe: Yes Documenting Scribe: Sheron Handley Provider For Whom Augusto is Documenting (Include Credential): Stephanie Rodriguez MD. Scribe Attestation: ISheron, scribed for Stephanie Rodriguez MD. on 12/02/18 at 0955. Scribe Documentation Reviewed: Yes Provider Attestation: The documentation as recorded by the scribe, Sheron Handley accurately reflects the service I personally performed and the decisions made by , Stephanie Rodriguez MD. Status of Scribe Document: Viewed
[2018-12-01 21:09] LABS: ABS Basophils 0.1 10^3/ul (0-0.2); ABS Eosinophils 0.2 10^3/ul (0-0.6); ABS Lymphocytes 2.5 10^3/ul (1.0-4.8); ABS Monocytes 0.7 10^3/ul (0-0.8); ABS Neutrophils 5.5 10^3/ul (1.5-7.7); Eosinophil % 2.4 %; Hematocrit 41 % (42-52); Hemoglobin 13.6 g/dL (14.0-18.0); Lymphocyte % 27.7 %; Mean Corpuscular HGB Conc 34 g/dL (31-36); Mean Corpuscular Hemoglobin 26 pg (27-31); Mean Corpuscular Volume 79 fL (80-94); Mean Platelet Volume 8.4 fL (7.4-10.4); Nucleated Red Blood Cells % 0.1; Platelet Count 195 10^3/uL (150-450); Red Blood Count 5.16 10^6 /uL (4.18-5.48); Red Cell Distribution Width 16 % (10-15)
[2018-12-01 21:25] LABS: Albumin 4.1 g/dL (3.2-5.2); Albumin/Globulin Ratio 1.1 (1-3); BUN/Creatinine Ratio 12.9 (8-20); Calcium 8.9 mg/dL (8.6-10.3); EGFR African American 119.6 (>60); EGFR Non-African American 98.8 (>60); Globulin 3.8 g/dL (2-4); Potassium 4.2 mmol/L (3.5-5.0); Total Bilirubin 0.6 mg/dL (0.2-1.0); Total Protein 7.9 g/dL (6.4-8.9)
[2018-12-01] MEDS ORDERED: predniSONE TAB* 20 MG ONE (22:55)
[2018-12-01] MEDS ORDERED: predniSONE TAB* 10 MG ONE (22:55)
[2018-12-01 23:12] VITALS: BP 126/85
[2018-12-02] MEDS ORDERED: predniSONE TAB* 50 MG PO ONE (23:20)
== END 2018-12-01 23:15 | disposition home or self-care (01) ==
LOC: ED 20:09
DX: J45.901 Unspecified asthma with (acute) exacerbation (principal); I50.9 Heart failure, unspecified
CPT/HCPCS: 36415; 71046; 80053; 84484; 85025; 93005; 96374; 99284; J2930; J7512; J7611

== ENCOUNTER 2020-11-27 05:41 | Inpatient (IN) ==
[2020-11-27] MEDS ORDERED: Acetaminophen IV 1 GM/100ML 100 ML IV ONE ×2 (06:00→06:16)
[2020-11-27] MEDS ORDERED: Famotidine IV 10 MG/ML 2 ml VIAL (20 mg) IV ONE (06:00)
[2020-11-27] MEDS ORDERED: Lactated Ringers 1000 ml BAG 1,000 ML IV SCH (06:00)
[2020-11-27] MEDS ORDERED: Buffered Lidocaine 1% SYRIN 1 ml INTRADERM ONE ×2 (06:00→06:16)
[2020-11-27] MEDS ORDERED: Famotidine IV 10 MG/ML 2 ml VIAL (20 mg) ONE (06:16)
[2020-11-27] MEDS ORDERED: ceFAZolin 2 GM in NS PREMIX 2 GM/100 ML BAG IVPB ONE (06:16)
[2020-11-27] MEDS ORDERED: Heparin 5000 UNITS/ML 1 mL VIAL ONE (06:16)
[2020-11-27] MEDS ORDERED: ceFAZolin 1 GM ADVAN 1 GM ADDV.VIAL IVPB ONE (06:16)
[2020-11-27] MEDS ORDERED: fentaNYL 100 mcg/2 ml 50 MCG/ML VIAL ONE (07:03)
[2020-11-27] MEDS ORDERED: Propofol 10 MG/ML 20 ML BTL ONE (07:03)
[2020-11-27] MEDS ORDERED: Lidocaine 2% PF 5 ML VIAL ONE (07:03)
[2020-11-27] MEDS ORDERED: Ondansetron 4 mg VIAL 2 MG/ML 2 ml VIAL ONE ×3 (07:03→08:14)
[2020-11-27] MEDS ORDERED: Midazolam 2 mg/2 ml VIAL 1 mg/ml 2 ml VIAL (2 mg) ONE (07:03)
[2020-11-27] MEDS ORDERED: Dexamethasone IV 4 MG/ML VIAL 1 ml VIAL ONE ×3 (07:03→08:14)
[2020-11-27] MEDS ORDERED: Rocuronium 50 mg VIAL 10 mg/ml 5 ml VIAL (50 mg) ONE ×3 (07:06→09:48)
[2020-11-27] MEDS ORDERED: Lidocaine 1% w EPI 1:100,000 MDV 20 ML VIAL ONE (07:14)
[2020-11-27] MEDS ORDERED: Bupivacaine 0.5% SDV PF 30ML VIAL ONE (07:14)
[2020-11-27] MEDS ORDERED: Succinylcholine 200 mg VIAL 20 mg/ml 10 ml VIAL (200 mg) ONE (07:41)
[2020-11-27] MEDS ORDERED: Phenylephrine 40 mcg/mL 10mL (400mcg) SYRINGE ONE (08:32)
[2020-11-27] MEDS ORDERED: Metoclopramide 5 MG/ML VIAL (10 mg) IV PRN (08:34)
[2020-11-27] MEDS ORDERED: Naloxone 0.4 mg VIAL 0.4 mg/ml 1 ml VIAL IV PRN (08:34)
[2020-11-27] MEDS ORDERED: Ondansetron 4 mg VIAL 2 MG/ML 2 ml VIAL IV PRN ×2 (08:34→11:32)
[2020-11-27] MEDS ORDERED: diPHENhydraMINE IV 50 MG/ML 1 ml VIAL (BENADRYL) IV PRN (08:34)
[2020-11-27] MEDS ORDERED: Sugammadex 500 MG/5 ML 5 ml VIAL IV PUSH ONE ×2 (10:30)
[2020-11-27] MEDS ORDERED: HYDROmorphone 0.5 MG/0.5 ML SYRINGE IV SLOW PU PRN (11:32)
[2020-11-27] MEDS ORDERED: HYDROcodone/ACET. 7.5/325 LIQ 15 ML UDC PO PRN (11:32)
[2020-11-27] MEDS ORDERED: Albuterol/Ipratropium NEB.SOL (2.5/0.5 MG) 3 ML NEB.SOLN INH PRN (11:36)
[2020-11-27] MEDS ORDERED: HYDROmorphone 1 MG/1 ML SYRINGE ONE (12:29)
[2020-11-27] MEDS: HYDROmorphone 1 MG/1 ML SYRINGE IV PRN ×3 (12:30→12:50)
[2020-11-27] MEDS: Lactated Ringers 1000 ml BAG 1,000 ML IV SCH ×2 (14:22→21:37)
[2020-11-27] MEDS ORDERED: Metoprolol Tartrate 5 mg VIAL 5 ml VIAL (1 mg/ml) IV SCH (20:00)
[2020-11-27] MEDS: Metoprolol Tartrate 5 mg VIAL 5 ml VIAL (1 mg/ml) IV SCH (21:34)
[2020-11-27] MEDS: Heparin 5000 UNITS/ML 1 mL VIAL SUBCUT SCH (21:35)
[2020-11-28] MEDS: Metoprolol Tartrate 5 mg VIAL 5 ml VIAL (1 mg/ml) IV SCH ×3 (01:41→13:52)
[2020-11-28] MEDS: Lactated Ringers 1000 ml BAG 1,000 ML IV SCH (05:35)
[2020-11-28] MEDS: Heparin 5000 UNITS/ML 1 mL VIAL SUBCUT SCH ×3 (05:35→22:08)
[2020-11-28] MEDS ORDERED: D5W 1/2 NS KCl 20 meq 1000 ml 1,000 ML IV SCH (13:00)
[2020-11-28 19:27] VITALS: BP 154/85
[2020-11-30] MEDS ORDERED: Scopolamine PATCH Remove NOTE PATCH OFF ONE (06:00)
== END 2020-11-28 20:20 | disposition home or self-care (01) | DRG 403 ==
LOC: AA 05:41 → SSU 13:13
PROVIDERS: ADMIT Surgery; ATTEND Surgery